=== PATIENT | female | born 1955 | race Caucasian/White ===

== ENCOUNTER 2017-11-10 11:15 | Outpatient (RCR) | payer OTHER, SELFPAY ==
--- NOTE | 2017-09-30 12:49 | PT.OIE ---
Current Diagnoses Pain in right shoulder (09/29/17) Unspecified injury of muscle, fascia and tendon of long head of biceps, right arm, subsequent encounter (09/29/17) Past Surgical History (Last Updated 09/30/17 @ 11:18 by Micheline Mtz, PT) History of carpal tunnel release (Acute) History of elbow surgery (Acute) History of partial knee replacement (Acute) Status post surgery (07/24/09) Provider Visit Care Team Role Provider Type Mir Emery MD Family Provider Physician Primary Care Provider Specialty: [facility] Address: [address] [place] [address], [id number] Email: [email or web address] Attending Provider Physician Specialty: Orthopedic Surgery Address: [address] [place] [address], [id number] Email: [email or web address] Physical Therapy Initial Evaluation PT-OP-A Visit Information Start: 09/29/17 12:35 Freq: Status: Active Protocol: Document 09/29/17 13:00 AMB (Rec: 09/29/17 16:23 AMB [email or web address]) Out-Patient Physical Therapy Visit Information Visit Information Visit Type Initial Evaluation Visit Note 12 visits authorized Visit Start Time 13:00 Visit Stop Time 13:45 Total Visit Minutes 45 Visit Number 1 Evaluation Information Evaluation Date 09/29/17 PT-OP-B Current Condition Start: 09/29/17 12:35 Freq: Status: Active Protocol: Document 09/29/17 13:00 AMB (Rec: 09/30/17 11:10 AMB [email or web address]) Current Condition History of Current Condition Onset Date 3 months ago Current Complaints Right shoulder and elbow pain, with intermittent numbness History of Current Condition The patient reports she tripped and fell into her nightstand. Since that time she has had shoulder and elbow pain that radiate into the hand. She does describe intermittent numbness in fingers 3-5. She also describes scapular pain. Pain is the worst lifting, carrying, sleeping on the shoulder. Prior Functional Status Baseline Function- ADL's Independent Baseline Function- Mobility Independent Baseline Function- Other Pt is retired, she lives independently. Current Functional Impairments (Reported) Functional Limitations- ADL's R arm is painful with sleeping , lifting groceries, reaching her back or hair for bathing. Personal Factors Other Personal Factors That May Effect Extensive previous surgical Therapy/Recovery history to the right arm. $40 copay which she really cannot afford. PT-OP-C Subjective Start: 09/29/17 12:35 Freq: Status: Active Protocol: Document 09/29/17 13:00 AMB (Rec: 09/30/17 11:31 AMB [email or web address]) OP-PT Subjective Patient Comments Patient Comments The patient states that the pain has been about the same over the past 3 months since she fell on her right arm. Patient Questionnaires Quick Dash- Upper Extremity Quick Dash UE Score 63 Quick Dash UE Impairment 60 to 79% Impaired (Score 60- 79) OP-PT Pain Assessment Pain Assessment Grid Paper Pain Assessment Grid Completed Yes Location R shoulder/elbow Pain Location Details 4 Scale Used Numeric (1 - 10) PT-OP-J Posture/Palpation/Skin Start: 09/29/17 12:35 Freq: Status: Active Protocol: Document 09/29/17 13:00 AMB (Rec: 09/30/17 12:46 AMB [email or web address]) Posture Evaluation Position Sitting Evaluation View Lateral Head/C-Spine Posture Forward Head L-Spine Posture Decreased Lordosis Shoulder Posture (L) Rounded (R) Rounded (L) Forward (R) Forward Arm Posture (L) Internally Rotated Palpation Assessment Location One Palpation Location Right shoulder Palpation Details Tenderness over long head of biceps insertion, tenderness over lateral glenohumeral joint but not as severe, tightness and tenderness at superior aspect of scapula. PT-OP-K Range of Motion Start: 09/29/17 12:35 Freq: Status: Active Protocol: Document 09/29/17 13:00 AMB (Rec: 09/30/17 12:43 AMB [email or web address]) Shoulder Goniometric Range of Motion Shoulder Measured in Degrees Left Active Testing Position Sitting Flexion 150 Abduction 125 Right Passive Testing Position Supine Flexion 130 Right Active Testing Position Sitting Flexion 110 Abduction 70 Shoulder ROM Limitations Comments External rotation at 0 degrees abduction 40 degrees onthe right, 70 degrees on the left. PT-OP-L Special Tests Start: 09/29/17 12:35 Freq: Status: Active Protocol: Document 09/29/17 13:00 AMB (Rec: 09/30/17 12:44 AMB [email or web address]) Special Tests Shoulder Special Tests Aguilera Harsha Impingement Test Results positive on the right, negative on the left Empty Can Test Results positive for increased pain on the right PT-OP-M Strength Start: 09/29/17 12:35 Freq: Status: Active Protocol: Document 09/29/17 13:00 AMB (Rec: 09/30/17 12:49 AMB [email or web address]) Shoulder Strength Shoulder Manual Muscle Testing Left Flexion 4+ Good+ Abduction (C5) 4+ Good+ External Rotation 5 Normal Internal Rotation 5 Normal Right Flexion 4 Good Abduction (C5) 3+ Fair+ External Rotation 4- Good- Internal Rotation 4 Good PT-OP-Q Treatments Start: 09/29/17 12:35 Freq: Status: Active Protocol: Document 09/29/17 13:00 AMB (Rec: 09/30/17 11:36 AMB [email or web address]) Therapeutic Exercises Supine Exercises 2 Supine Exercise Name scapular protraction Resistance 0 Reps/Minutes 5 1 Supine Exercise Name AAROM Comments flexion, abduction, ER with cane Sitting Exercises 1 Sitting Exercise Name biceps curl Resistance 2# Comments 3 way Standing Exercises 1 Standing Exercise Name t band ER Equipment Used level 2 latex free Reps/Minutes x5 PT-OP-T Assessment and Plan Start: 09/29/17 12:35 Freq: Status: Active Protocol: Document 09/29/17 13:00 AMB (Rec: 09/30/17 12:02 AMB [email or web address]) Physical Therapy Assessment Rehab Potential Rehabilitation Potential Good Evaluation Complexity Number of Personal Factors/Comorbidities 1-2 Number of Body Systems Impaired 4 or More Clinical Presentation at Evaluation Evolving Impairments Impairments Functional Activities Pain ROM Strength Other Concerns Barriers to Rehabilitation High copay- the patient will only be seen for 1-2 more appointments due to financial restrictions Goals 2 Impairment Strength Short Term Goal (STG) The patient will lift a 10# bag of groceries from the floor to waist height without an increase in shoulder or elbow pain. STG Duration 4 weeks Half-Way Goal (LTG) The patient will improve her shoulder strength so that she can wash her hair without her shoulder catching. LTG Duration 8 weeks 1 Impairment Range of motion Short Term Goal (STG) The patient will improve her active shoulder flexion to 140 degrees. STG Duration 4 weeks Half-Way Goal (LTG) The patient will improve her range of motion so that she can put dishes away in a high cabinet without increasing her pain. LTG Duration 8 weeks Assessment Summary Assessment The right hand dominant patient presents with right scapular, anterior shoulder, and elbow pain that radiates into the hand. Signs and symptoms point to bicipital tendinitis and glenohumeral impingement. Patient denies cervical symptoms, so possible ulnar nerve exacerbation would explain intermittent numbness, especially considering patient's prior surgical history in that arm. Improvement may be limited due to financial limitations and high copay, but did start the patient on a home exercise program at evaluation. Physical Therapy Plan Frequency and Duration Frequency of Treatment Every Other Week Duration of Treatment 8 weeks Plan of Care Start Date 09/29/17 Plan of Care End Date 11/24/17 Therapeutic Interventions Therapeutic Interventions Home Exercise Program Joint Mobilizations Manual Therapy Neuromuscular Re-education Self-Care/Home Management Therapeutic Activities Therapeutic Exercises Modalities Cold Pack/Ice Massage Electric Stimulation Hot Packs Please Sign and Return: I have reviewed this Plan of Care and certify that the skilled therapy services above are required to meet the patient???s needs. Physician Signature Date Printed Name and Credentials Clinical Instructor Signature Printed Name and Credentials
--- NOTE | 2017-10-21 06:38 | PT.OTN ---
Current Diagnoses Pain in right shoulder (10/20/17) Physical Therapy Treatment Note PT-OP-A Visit Information Start: 09/29/17 12:35 Freq: Status: Active Protocol: Document 10/20/17 13:45 AMB (Rec: 10/20/17 15:59 AMB [email or web address]) Out-Patient Physical Therapy Visit Information Visit Information Visit Type Progress Note Visit Note 12 visits authorized Visit Start Time 13:45 Visit Stop Time 14:30 Total Visit Minutes 45 Visit Number 1 Evaluation Information Evaluation Date 09/29/17 PT-OP-B Current Condition Start: 09/29/17 12:35 Freq: Status: Active Protocol: Document 09/29/17 13:00 AMB (Rec: 09/30/17 11:10 AMB [email or web address]) Current Condition History of Current Condition Onset Date 3 months ago Current Complaints Right shoulder and elbow pain, with intermittent numbness History of Current Condition The patient reports she tripped and fell into her nightstand. Since that time she has had shoulder and elbow pain that radiate into the hand. She does describe intermittent numbness in fingers 3-5. She also describes scapular pain. Pain is the worst lifting, carrying, sleeping on the shoulder. Prior Functional Status Baseline Function- ADL's Independent Baseline Function- Mobility Independent Baseline Function- Other Pt is retired, she lives independently. Current Functional Impairments (Reported) Functional Limitations- ADL's R arm is painful with sleeping , lifting groceries, reaching her back or hair for bathing. Personal Factors Other Personal Factors That May Effect Extensive previous surgical Therapy/Recovery history to the right arm. $40 copay which she really cannot afford. PT-OP-C Subjective Start: 09/29/17 12:35 Freq: Status: Active Protocol: Document 10/20/17 13:45 AMB (Rec: 10/20/17 15:59 AMB [email or web address]) OP-PT Subjective Patient Comments Patient Comments Patient states she is doing better, the scapular pain comes and goes, but overall the shoulder is feeling better in flexion, but still tight into internal rotation. PT-OP-J Posture/Palpation/Skin Start: 09/29/17 12:35 Freq: Status: Active Protocol: Document 09/29/17 13:00 AMB (Rec: 09/30/17 12:46 AMB [email or web address]) Posture Evaluation Position Sitting Evaluation View Lateral Head/C-Spine Posture Forward Head L-Spine Posture Decreased Lordosis Shoulder Posture (L) Rounded (R) Rounded (L) Forward (R) Forward Arm Posture (L) Internally Rotated Palpation Assessment Location One Palpation Location Right shoulder Palpation Details Tenderness over long head of biceps insertion, tenderness over lateral glenohumeral joint but not as severe, tightness and tenderness at superior aspect of scapula. PT-OP-K Range of Motion Start: 09/29/17 12:35 Freq: Status: Active Protocol: Document 09/29/17 13:00 AMB (Rec: 09/30/17 12:43 AMB [email or web address]) Shoulder Goniometric Range of Motion Shoulder Measured in Degrees Left Active Testing Position Sitting Flexion 150 Abduction 125 Right Passive Testing Position Supine Flexion 130 Right Active Testing Position Sitting Flexion 110 Abduction 70 Shoulder ROM Limitations Comments External rotation at 0 degrees abduction 40 degrees onthe right, 70 degrees on the left. PT-OP-L Special Tests Start: 09/29/17 12:35 Freq: Status: Active Protocol: Document 09/29/17 13:00 AMB (Rec: 09/30/17 12:44 AMB [email or web address]) Special Tests Shoulder Special Tests Aguilera Harsha Impingement Test Results positive on the right, negative on the left Empty Can Test Results positive for increased pain on the right PT-OP-M Strength Start: 09/29/17 12:35 Freq: Status: Active Protocol: Document 09/29/17 13:00 AMB (Rec: 09/30/17 12:49 AMB [email or web address]) Shoulder Strength Shoulder Manual Muscle Testing Left Flexion 4+ Good+ Abduction (C5) 4+ Good+ External Rotation 5 Normal Internal Rotation 5 Normal Right Flexion 4 Good Abduction (C5) 3+ Fair+ External Rotation 4- Good- Internal Rotation 4 Good PT-OP-Q Treatments Start: 09/29/17 12:35 Freq: Status: Active Protocol: Document 10/20/17 13:45 AMB (Rec: 10/20/17 16:07 AMB [email or web address]) Therapeutic Exercises Supine Exercises 2 Supine Exercise Name scapular protraction Resistance #2 t band Reps/Minutes 10 1 Supine Exercise Name AAROM Comments added IR with towel Standing Exercises 2 Standing Exercise Name t band IR 1 Standing Exercise Name t band ER Equipment Used level 2 latex free Reps/Minutes x10 Manual Therapy Treatment Soft Tissue Mobilization 1 Body Location supraspinatus Mobilization Type Cross-Friction Myofascial Release Strumming Comments tendon and body of muscle PT-OP-T Assessment and Plan Start: 09/29/17 12:35 Freq: Status: Active Protocol: Document 10/20/17 13:45 AMB (Rec: 10/21/17 06:37 AMB [email or web address]) Physical Therapy Assessment Assessment Summary Assessment The patient is progressing well, with stiffness into internal rotation, but significantly improved flexion and abduction. Physical Therapy Plan Next Visit Focus/Plan Next Note Type Treatment Note Next Visit Plan See pt again in 2-3 weeks (due to high copay) to progress HEP at that time. Please Sign and Return: I have reviewed this Plan of Care and certify that the skilled therapy services above are required to meet the patient?s needs. Physician Signature Date Printed Name and Credentials Clinical Instructor Signature Printed Name and Credentials
--- NOTE | 2017-11-10 11:15 | PT.OTN ---
Current Diagnoses Pain in right shoulder (11/10/17) Physical Therapy Treatment Note PT-OP-A Visit Information Start: 09/29/17 12:35 Freq: Status: Active Protocol: Document 11/10/17 11:15 AMB (Rec: 11/10/17 11:26 AMB [email or web address]) Out-Patient Physical Therapy Visit Information Visit Information Visit Type Discharge Summary Visit Start Time 11:15 Visit Stop Time 12:00 Total Visit Minutes 45 Visit Number 3 Evaluation Information Evaluation Date 09/29/17 PT-OP-B Current Condition Start: 09/29/17 12:35 Freq: Status: Active Protocol: Document 09/29/17 13:00 AMB (Rec: 09/30/17 11:10 AMB [email or web address]) Current Condition History of Current Condition Onset Date 3 months ago Current Complaints Right shoulder and elbow pain, with intermittent numbness History of Current Condition The patient reports she tripped and fell into her nightstand. Since that time she has had shoulder and elbow pain that radiate into the hand. She does describe intermittent numbness in fingers 3-5. She also describes scapular pain. Pain is the worst lifting, carrying, sleeping on the shoulder. Prior Functional Status Baseline Function- ADL's Independent Baseline Function- Mobility Independent Baseline Function- Other Pt is retired, she lives independently. Current Functional Impairments (Reported) Functional Limitations- ADL's R arm is painful with sleeping , lifting groceries, reaching her back or hair for bathing. Personal Factors Other Personal Factors That May Effect Extensive previous surgical Therapy/Recovery history to the right arm. $40 copay which she really cannot afford. PT-OP-C Subjective Start: 09/29/17 12:35 Freq: Status: Active Protocol: Document 11/10/17 11:15 AMB (Rec: 11/10/17 11:26 AMB [id number]) OP-PT Subjective Patient Comments Patient Comments Pt continues to note pain with sleeping on the shoulder. PT-OP-J Posture/Palpation/Skin Start: 09/29/17 12:35 Freq: Status: Active Protocol: Document 09/29/17 13:00 AMB (Rec: 09/30/17 12:46 AMB [email or web address]) Posture Evaluation Position Sitting Evaluation View Lateral Head/C-Spine Posture Forward Head L-Spine Posture Decreased Lordosis Shoulder Posture (L) Rounded (R) Rounded (L) Forward (R) Forward Arm Posture (L) Internally Rotated Palpation Assessment Location One Palpation Location Right shoulder Palpation Details Tenderness over long head of biceps insertion, tenderness over lateral glenohumeral joint but not as severe, tightness and tenderness at superior aspect of scapula. PT-OP-K Range of Motion Start: 09/29/17 12:35 Freq: Status: Active Protocol: Document 09/29/17 13:00 AMB (Rec: 09/30/17 12:43 AMB [email or web address]) Shoulder Goniometric Range of Motion Shoulder Measured in Degrees Left Active Testing Position Sitting Flexion 150 Abduction 125 Right Passive Testing Position Supine Flexion 130 Right Active Testing Position Sitting Flexion 110 Abduction 70 Shoulder ROM Limitations Comments External rotation at 0 degrees abduction 40 degrees onthe right, 70 degrees on the left. PT-OP-L Special Tests Start: 09/29/17 12:35 Freq: Status: Active Protocol: Document 09/29/17 13:00 AMB (Rec: 09/30/17 12:44 AMB [email or web address]) Special Tests Shoulder Special Tests Aguilera Harsha Impingement Test Results positive on the right, negative on the left Empty Can Test Results positive for increased pain on the right PT-OP-M Strength Start: 09/29/17 12:35 Freq: Status: Active Protocol: Document 09/29/17 13:00 AMB (Rec: 09/30/17 12:49 AMB [email or web address]) Shoulder Strength Shoulder Manual Muscle Testing Left Flexion 4+ Good+ Abduction (C5) 4+ Good+ External Rotation 5 Normal Internal Rotation 5 Normal Right Flexion 4 Good Abduction (C5) 3+ Fair+ External Rotation 4- Good- Internal Rotation 4 Good PT-OP-Q Treatments Start: 09/29/17 12:35 Freq: Status: Active Protocol: Document 11/10/17 11:15 AMB (Rec: 11/13/17 07:11 AMB [email or web address]) Therapeutic Exercises Supine Exercises 2 Supine Exercise Name scapular protraction Resistance #3 Reps/Minutes 10 Sidelying Exercises 1 Sidelying Exercise Name shoulder ER Resistance 2# Standing Exercises 4 Standing Exercise Name scaption Resistance 2# Reps/Minutes 10 3 Standing Exercise Name shoulder flexion Resistance 2# Reps/Minutes 10 1 Standing Exercise Name t band ER Equipment Used level 3 latex free Reps/Minutes 2x10 Manual Therapy Treatment Soft Tissue Mobilization 1 Body Location supraspinatus Mobilization Type Cross-Friction Myofascial Release Strumming Comments tendon and body of muscle PT-OP-T Assessment and Plan Start: 09/29/17 12:35 Freq: Status: Active Protocol: Document 11/10/17 11:15 AMB (Rec: 11/13/17 07:11 AMB [email or web address]) Physical Therapy Assessment Goals 2 Impairment Strength Short Term Goal (STG) The patient will lift a 10# bag of groceries from the floor to waist height without an increase in shoulder or elbow pain. MET STG Duration 4 weeks [employer] Goal (LTG) The patient will improve her shoulder strength so that she can wash her hair without her shoulder catching. MET LTG Duration 8 weeks 1 Impairment Range of motion Short Term Goal (STG) The patient will improve her active shoulder flexion to 140 degrees. MET STG Duration 4 weeks Residential Goal (LTG) The patient will improve her range of motion so that she can put dishes away in a high cabinet without increasing her pain. MET LTG Duration 8 weeks Assessment Summary Assessment The patient was seen for 3 visits. She has improved her range of motion significantly, as well as her ability to reach and lift without pain. She does continue to have pain when sleeping on the affected shoulder and moving the arm into end range external rotation. She was encouraged to continue with her HEP and given instruction in how to progress it appropriately. Given her progression so far and her high copay, she is now discharged and should continue her HEP independently . Physical Therapy Plan Discharge Physical Therapy Discharge Reasons Goals Met
--- NOTE | 2017-11-13 07:13 | PT.OPDS ---
Current Diagnoses Pain in right shoulder (11/10/17) Provider Visit Care Team Role Provider Type Mir Emery MD Family Provider Physician Primary Care Provider Specialty: Family Practice Address: [address] [place], [address] Email: [email or web address] Attending Provider Physician Specialty: Orthopedic Surgery Address: [address] [place] [address], [phone] Email: Visit Number Visit Number 3 Discharge Summary PT-OP-B Current Condition Start: 09/29/17 12:35 Freq: Status: Active Protocol: Document 09/29/17 13:00 AMB (Rec: 09/30/17 11:10 AMB [email or web address]) Current Condition History of Current Condition Onset Date 3 months ago Current Complaints Right shoulder and elbow pain, with intermittent numbness History of Current Condition The patient reports she tripped and fell into her nightstand. Since that time she has had shoulder and elbow pain that radiate into the hand. She does describe intermittent numbness in fingers 3-5. She also describes scapular pain. Pain is the worst lifting, carrying, sleeping on the shoulder. Prior Functional Status Baseline Function- ADL's Independent Baseline Function- Mobility Independent Baseline Function- Other Pt is retired, she lives independently. Current Functional Impairments (Reported) Functional Limitations- ADL's R arm is painful with sleeping , lifting groceries, reaching her back or hair for bathing. Personal Factors Other Personal Factors That May Effect Extensive previous surgical Therapy/Recovery history to the right arm. $40 copay which she really cannot afford. PT-OP-C Subjective Start: 09/29/17 12:35 Freq: Status: Active Protocol: Document 11/10/17 11:15 AMB (Rec: 11/10/17 11:26 AMB [email or web address]) OP-PT Subjective Patient Comments Patient Comments Pt continues to note pain with sleeping on the shoulder. PT-OP-J Posture/Palpation/Skin Start: 09/29/17 12:35 Freq: Status: Active Protocol: Document 09/29/17 13:00 AMB (Rec: 09/30/17 12:46 AMB [email or web address]) Posture Evaluation Position Sitting Evaluation View Lateral Head/C-Spine Posture Forward Head L-Spine Posture Decreased Lordosis Shoulder Posture (L) Rounded (R) Rounded (L) Forward (R) Forward Arm Posture (L) Internally Rotated Palpation Assessment Location One Palpation Location Right shoulder Palpation Details Tenderness over long head of biceps insertion, tenderness over lateral glenohumeral joint but not as severe, tightness and tenderness at superior aspect of scapula. PT-OP-K Range of Motion Start: 09/29/17 12:35 Freq: Status: Active Protocol: Document 09/29/17 13:00 AMB (Rec: 09/30/17 12:43 AMB [email or web address]) Shoulder Goniometric Range of Motion Shoulder Measured in Degrees Left Active Testing Position Sitting Flexion 150 Abduction 125 Right Passive Testing Position Supine Flexion 130 Right Active Testing Position Sitting Flexion 110 Abduction 70 Shoulder ROM Limitations Comments External rotation at 0 degrees abduction 40 degrees onthe right, 70 degrees on the left. PT-OP-L Special Tests Start: 09/29/17 12:35 Freq: Status: Active Protocol: Document 09/29/17 13:00 AMB (Rec: 09/30/17 12:44 AMB [email or web address]) Special Tests Shoulder Special Tests Aguilera Harsha Impingement Test Results positive on the right, negative on the left Empty Can Test Results positive for increased pain on the right PT-OP-M Strength Start: 09/29/17 12:35 Freq: Status: Active Protocol: Document 09/29/17 13:00 AMB (Rec: 09/30/17 12:49 AMB [email or web address]) Shoulder Strength Shoulder Manual Muscle Testing Left Flexion 4+ Good+ Abduction (C5) 4+ Good+ External Rotation 5 Normal Internal Rotation 5 Normal Right Flexion 4 Good Abduction (C5) 3+ Fair+ External Rotation 4- Good- Internal Rotation 4 Good PT-OP-T Assessment and Plan Start: 09/29/17 12:35 Freq: Status: Active Protocol: Document 11/10/17 11:15 AMB (Rec: 11/13/17 07:11 AMB [email or web address]) Physical Therapy Assessment Goals 2 Impairment Strength Short Term Goal (STG) The patient will lift a 10# bag of groceries from the floor to waist height without an increase in shoulder or elbow pain. MET STG Duration 4 weeks Assisted Goal (LTG) The patient will improve her shoulder strength so that she can wash her hair without her shoulder catching. MET LTG Duration 8 weeks 1 Impairment Range of motion Short Term Goal (STG) The patient will improve her active shoulder flexion to 140 degrees. MET STG Duration 4 weeks Assisted Goal (LTG) The patient will improve her range of motion so that she can put dishes away in a high cabinet without increasing her pain. MET LTG Duration 8 weeks Assessment Summary Assessment The patient was seen for 3 visits. She has improved her range of motion significantly, as well as her ability to reach and lift without pain. She does continue to have pain when sleeping on the affected shoulder and moving the arm into end range external rotation. She was encouraged to continue with her HEP and given instruction in how to progress it appropriately. Given her progression so far and her high copay, she is now discharged and should continue her HEP independently . Physical Therapy Plan Discharge Physical Therapy Discharge Reasons Goals Met
== END 2017-12-14 10:48 ==
LOC: PHYS 11:15
PROVIDERS: Family Provider Family Medicine; PCP Family Medicine; Visit Provider Orthopaedic Surgery
DX: M25.511 Pain in right shoulder (principal)
CPT/HCPCS: 97110; 97140; 97162

== ENCOUNTER → 2018-03-08 09:55 | Outpatient (CLI) | payer OTHER, SELFPAY ==
--- NOTE | 2018-03-08 | DI.MG.S_ITS ---
UNILATERAL LEFT DIGITAL DIAGNOSTIC MAMMOGRAM 3D/2D SHORT-TERM FOLLOW-UP: 03/08/2018 CLINICAL: Additional evaluation requested from prior study. Short-term follow-up left breast. Comparison is made to exams dated: 08/26/2017 mammogram, 08/07/2017 mammogram, and 07/10/2016 mammogram - [facility]. The tissue of left breast is extremely dense, which lowers the sensitivity of mammography. There are stable calcifications in the left breast at 1 o'clock middle depth. This correlates with the prior exam. No other significant masses or calcifications are seen in the breast. IMPRESSION: PROBABLY BENIGN The stable calcifications in the left breast are probably benign. A follow-up mammogram in 6 months is recommended to demonstrate stability. This exam was interpreted at Station ID: [id number]. NOTE: For mammograms, a report in lay terms will be sent to the patient. Approximately 15% of breast malignancies will not be visualized mammographically. In the management of a palpable breast mass, a negative mammogram must not discourage biopsy of a clinically suspicious lesion. Electronically Signed By: Kelly Hernandez M.D. lk/:03/08/2018 10:52:26 letter sent: Followup Recommended ACR BI-RADS Category 3: Probably benign 3343F
== END ==
PROVIDERS: PCP Family Medicine; Visit Provider Family Medicine
DX: R92.1 Mammographic calcification found on diagnostic imaging of breast (principal)
CPT/HCPCS: 77065; G0279

== ENCOUNTER → 2018-09-07 12:35 | Outpatient (CLI) | payer OTHER, SELFPAY ==
--- NOTE | 2018-09-07 | DI.MG.S_ITS ---
BILATERAL DIGITAL DIAGNOSTIC MAMMOGRAM 3D/2D: 09/07/2018 CLINICAL: Patient returns for a 6 month follow up of the left breast. Due for bilateral imaging. Comparison is made to exams dated: 03/08/2018 mammogram, 08/26/2017 mammogram, 08/07/2017 mammogram, and 07/10/2016 mammogram - [facility]. The tissue of both breasts is heterogeneously dense, which lowers the sensitivity of mammography. There are stable benign linear punctate calcifications in the left breast at 2 o'clock posterior depth. This correlates with the prior exam. No other significant masses, calcifications, or other findings are seen in either breast. IMPRESSION: There is no mammographic evidence of malignancy. Stable left breast calcifications. A 1 year screening mammogram is recommended. Findings and recommendations were conveyed to the patient. This exam was interpreted at Station ID: [id number]. NOTE: For mammograms, a report in lay terms will be sent to the patient. Approximately 15% of breast malignancies will not be visualized mammographically. In the management of a palpable breast mass, a negative mammogram must not discourage biopsy of a clinically suspicious lesion. Electronically Signed By: Mary lozano/:09/07/2018 13:54:55 letter sent: Normal Exam ACR BI-RADS Category 2: Benign Finding(s) 3342F
== END ==
PROVIDERS: PCP Family Medicine; Visit Provider Family Medicine
DX: R92.1 Mammographic calcification found on diagnostic imaging of breast (principal)
CPT/HCPCS: 77066; G0279

== ENCOUNTER → 2019-01-13 09:42 | Outpatient (CLI) | payer OTHER, SELFPAY ==
[2019-01-13 11:13] LABS: Add Manual Diff / Slide Review NO; Basophils Absolute Auto 0 /uL (0-100); Basophils Percent Auto 0.7 % (0-2); Eosinophils Absolute Auto 100 /uL (0-450); Eosinophils Percent Auto 1.6 % (2-4); Hematocrit 39.5 % (36-46); Hemoglobin 13.6 g/dL (12.0-16.0); Lymphocytes Absolute Auto 1300 /uL (1100-4500); Lymphocytes Percent Auto 20.4 % (25-40); Mean Corpuscular HGB Conc 34.4 % (30-36); Mean Corpuscular Hemoglobin 31.7 PG (26-34); Mean Corpuscular Volume 92.1 fL (80-100); Monocytes Absolute Auto 500 /uL (0-900); Monocytes Percent Auto 7.8 % (3-14); Neutrophils Absolute Auto 4300 /uL (1500-7000); Neutrophils Percent Auto 69.5 % (50-75); Platelet Count 242 X10^3/uL (150-400); Red Blood Cell Count 4.29 X10^6/uL (4.0-5.2); Red Cell Distribution Width 12.7 % (11.6-14.8); White Blood Cell Count 6.2 X10^3/uL (4.5-11.0)
[2019-01-13 11:17] LABS: Hemoglobin A1C% w Est Avg Glu 5.3 % (4.0-6.0)
[2019-01-13 11:36] LABS: Alanine Aminotransferase 23 IU/L (9-52); Albumin 4.1 g/dL (3.5-5.0); Albumin Globulin Ratio 1.6 (1.0-2.8); Alkaline Phosphatase 101 U/L (38-126); Aspartate Aminotransferase 22 IU/L (14-36); Bilirubin Total 0.7 mg/dL (0.2-1.3); Bilirubin Unconjugated 0.4 mg/dL (0.0-1.1); Blood Urea Nitrogen 14 mg/dL (7-17); Calcium 9.8 mg/dL (8.4-10.2); Carbon Dioxide 27 mmol/L (22-32); Chloride 103 mmol/L (98-107); Cholesterol 143 mg/dL (140-199); Estimated Glomerular Filt Rate > 60.0 mL/min (>60); Globulin 2.6 g/dL (1.7-4.1); Glucose 101 mg/dL (80-110); HDL Cholesterol 57 mg/dL (40-60); HEMOLYSIS < 15 (0-50); LDL Cholesterol Calculated 66 mg/dL (<100); Potassium 4.1 mmol/L (3.4-5.1); Sodium 141 mmol/L (137-145); Total Protein 6.7 g/dL (6.3-8.2); Triglycerides 99 mg/dL (35-150)
[2019-01-13 11:53] LABS: Free T4, Direct Thyroxine 0.98 ng/dL (0.78-2.19)
[2019-01-13 12:07] LABS: Thyroid Stimulating Hormone 0.78 uIU/mL (0.47-4.68)
== END ==
PROVIDERS: Visit Provider Nurse Practitioner Psychiatric/Mental Health
DX: F32.9 Major depressive disorder, single episode, unspecified (principal); F41.9 Anxiety disorder, unspecified; Z51.81 Encounter for therapeutic drug level monitoring
CPT/HCPCS: 80053; 80061; 80076; 83036; 84439; 84443; 85025

== ENCOUNTER → 2019-12-02 14:37 | Outpatient (CLI) | payer OTHER, SELFPAY | PROVIDERS: PCP Student in an Organized Health Care Education/Training Program; Referring Provider Student in an Organized Health Care Education/Training Program; Visit Provider Student in an Organized Health Care Education/Training Program | DX: M85.852 Other specified disorders of bone density and structure, left thigh (principal); Z78.0 Asymptomatic menopausal state; K92.9 Disease of digestive system, unspecified; Z82.62 Family history of osteoporosis | CPT/HCPCS: 77080 ==

== ENCOUNTER → 2019-12-20 09:57 | Outpatient (CLI) | payer OTHER, SELFPAY ==
--- NOTE | 2019-12-20 | DI.MG.S_ITS ---
BILATERAL DIGITAL SCREENING MAMMOGRAM 3D/2D WITH CAD: 12/20/2019 CLINICAL: Routine screening. Comparison is made to exams dated: 09/07/2018 mammogram, 08/07/2017 mammogram, and 07/10/2016 mammogram - [facility]. The tissue of both breasts is extremely dense, which lowers the sensitivity of mammography. Current study was also evaluated with a Computer Aided Detection (CAD) system. No significant masses, calcifications, or other findings are seen in either breast. There has been no significant interval change. IMPRESSION: NEGATIVE There is no mammographic evidence of malignancy. A 1 year screening mammogram is recommended. This exam was interpreted at Station ID: [id number]. NOTE: For mammograms, a report in lay terms will be sent to the patient. Approximately 15% of breast malignancies will not be visualized mammographically. In the management of a palpable breast mass, a negative mammogram must not discourage biopsy of a clinically suspicious lesion. Electronically Signed By: Fady Butler M.D., jr/matt:12/20/2019 11:18:01 letter sent: Normal Exam ACR BI-RADS Category 1: Negative 3341F
== END ==
PROVIDERS: PCP Student in an Organized Health Care Education/Training Program; Referring Provider Student in an Organized Health Care Education/Training Program; Visit Provider Student in an Organized Health Care Education/Training Program
DX: Z12.31 Encounter for screening mammogram for malignant neoplasm of breast (principal)
CPT/HCPCS: 77063; 77067

== ENCOUNTER 2020-01-03 15:15 | Outpatient (RCR) | payer OTHER, SELFPAY ==
--- NOTE | 2019-12-12 15:06 | PT.OIE ---
Current Diagnoses Other specified personal risk factors, not elsewhere classified (12/12/19) Past Medical History (Last Reviewed 06/02/19 @ 09:52 by Oli Hernandez MD) Depression (Acute) Past Surgical History (Last Reviewed 06/02/19 @ 09:52 by Oli Hernandez MD) History of carpal tunnel release (Acute) History of elbow surgery (Acute) History of partial knee replacement (Acute) Status post surgery (07/24/09) Visit Care Team Role Provider Type Verenice Manning MD Attending Provider Physician Primary Care Provider Referring Provider Specialty: [facility] Practice Address: [address] [place] [address], [facility] Email: [email or web address] Initial Evaluation PT-OP-A Visit Information Start: 12/12/19 12:32 Freq: Status: Active Protocol: Document 12/12/19 12:33 HH (Rec: 12/12/19 12:57 HH [email or web address]) Out-Patient Physical Therapy Visit Information Visit Information Visit Start Time 10:30 Visit Stop Time 11:01 Total Visit Minutes 31 Visit Number /15 Number of POLICE PILOT Visits 0 Evaluation Information Evaluation Date 12/12/19 Precautions Precautions high fall risks PT-OP-B Current Condition Start: 12/12/19 12:32 Freq: Status: Active Protocol: Document 12/12/19 12:33 HH (Rec: 12/12/19 12:57 HH [email or web address]) Current Condition History of Current Condition Onset Date years ago Current Complaints Decline in balance, risk of falling, difficulty in walking History of Current Condition Pt is a 64yo female here for decline in balance, risk of falling and difficulty in walking. Pt presents with flat affect and somewhat poor attention. Pt noticed her balance has been getting worse since a few years ago and she had 6-7 falls within the past year, especially 2 times within the past 2 weeks. She described her legs feel like out of control and wobbly who shows involuntary movement in seated/ laying position. Pt stated she can control them sometimes depends on the day. She also c/o dizziness/ room spinning sensation sometimes especially bed mobility. Pt saw Dr. Manning but she said she did not address her presentation of uncontrolled leg movement to her. Future Testing and Treatments Planned Pt will see Dr. Manning again on 12/13 for f/u. Treatment Goals Patient/Caregiver Goals To improve her balance to reduce her fall risks Personal Factors Other Personal Factors That May Effect psychological disorder Therapy/Recovery depression dizziness PT-OP-C Subjective Start: 12/12/19 12:32 Freq: Status: Active Protocol: Document 12/12/19 12:33 HH (Rec: 12/12/19 12:57 [email or web address]) OP-PT Subjective Patient Comments Patient Comments 'My legs are hard to control sometimes and i dont know why. Patient Questionnaires ABC- Activity Specific Balance Confidence Scale ABC Score 71.25 ABC Functional Impairment 20 to <40% Impaired (Score 61- 80) Dizziness Handicap Inventory DHI Score 64 DHI Functional Impairment 60 to 79% Impaired (Score 60- 79) PT-OP-G Mobility & Gait Start: 12/12/19 12:32 Freq: Status: Active Protocol: Document 12/12/19 12:33 HH (Rec: 12/12/19 12:57 [email or web address]) OP Gait Assessment Gait Deviations General Gait Pattern Antalgic Factors Limiting Gait Function Factors Limiting Gait Function Poor Balance Comments Gait Comments pt presents an ataxic gait with uneven step length and width length. Pt overall amb slowly with difficulty amb with a straigth line. Occasional lateral weight shift noted. PT-OP-H Neuro Start: 12/12/19 12:32 Freq: Status: Active Protocol: Document 12/12/19 12:33 HH (Rec: 12/12/19 12:57 [email or web address]) Coordination Evaluation Upper Extremity Tests Right Finger to Nose Test Minimal Impairment Finger to Therapist's Finger Test Minimal Impairment Finger to Finger Test Minimal Impairment Finger Opposition Test Minimal Impairment Pronation/Supination Test Minimal Impairment Left Finger to Nose Test Minimal Impairment Finger to Therapist's Finger Test Minimal Impairment Finger to Finger Test Minimal Impairment Finger Opposition Test Minimal Impairment Pronation/Supination Test Minimal Impairment Lower Extremity Tests Right Alternate Heel to Knee; Heel to Toe Test Moderate Impairment Heel on Lee Test Moderate Impairment Left Alternate Heel to Knee; Heel to Toe Test Moderate Impairment Heel on Lee Test Moderate Impairment Muscle Tone Tone Assessment Right Lower Extremity Manifestations of Tone Fluctuation,Athetoid Movement Muscle Tone Comments pt presents fluctuated tone at lower legs , along with consistent chorea for B LE in seated and supine positions. pt has difficulty performing lee to knee and ankle circles tests. Right Upper Extremity Flexor Tone Description Normal Extensor Tone Description Normal Left Upper Extremity Flexor Tone Description Normal Extensor Tone Description Normal PT-OP-K Range of Motion Start: 12/12/19 12:32 Freq: Status: Active Protocol: Document 12/12/19 12:33 HH (Rec: 12/12/19 12:57 [email or web address]) Hip Goniometric Range of Motion Hip Right Active Hip ROM WFL Yes Left Active Hip ROM WFL Yes Knee Goniometric Range of Motion Knee Right Knee ROM WFL Yes Left Knee ROM WFL Yes PT-OP-M Strength Start: 12/12/19 12:32 Freq: Status: Active Protocol: Document 12/12/19 12:33 HH (Rec: 12/12/19 12:57 [email or web address]) Hip Strength Hip Manual Muscle Testing Right Reason Not Measured Muscle Tone Comments Has difficulty isolating single joint movement Left Reason Not Measured Muscle Tone Comments Has difficulty isolating single joint movement PT-OP-O Vestibular Start: 12/12/19 12:32 Freq: Status: Active Protocol: Document 12/12/19 12:33 HH (Rec: 12/12/19 14:57 [email or web address]) Vestibular Assessment Visual Testing Smooth Pursuits Horizontal intact Smooth Pursuits Vertical intact Saccades Horizontal intact Saccades Vertical intact Vestibulo-Ocular Reflex (VOR1) Positive PT-OP-T Assessment and Plan Start: 12/12/19 12:32 Freq: Status: Active Protocol: Document 12/12/19 12:33 HH (Rec: 12/12/19 12:57 [email or web address]) Physical Therapy Assessment Assessment Summary Assessment This is a high complexity evaluation for this 64yo female here for decline in balance and risk of falling since a few years ago. Upon assessment, pt presents significant involuntary - chorea like movements primarily on bilateral lower extremities in seated and supine positions. Her overall fine motor control and coordination are impaired (LEs worse than UEs). Pt also presents nystagmus with VOR screening. She also amb with an ataxic with inconsistent step and length and width. However, pt does not have strength and ROM loss. In my professional opinion, I suspect pt has possible upper motor neuron impairment such as Zachariah's Disease. Recommended pt to consult with PCP again, along with neurologist consult. POC will not establish until further assessment is done. Physical Therapy Plan Frequency and Duration Duration of Treatment pending Other Referrals/Consults Referrals/Consults Recommended Recommended pt to consult with Dr. Manning and neurologist to rule out possible neurological disease.
--- NOTE | 2019-12-26 16:59 | PT.OPPOC ---
Physical, Occupational & Speech Therapy At [facility] Current Diagnoses Other specified personal risk factors, not elsewhere classified (12/26/19) Visit Care Team Role Provider Type Verenice Manning MD Attending Provider Physician Primary Care Provider Referring Provider Specialty: Family Practice Address: [address] [place] [address] [place], [address] Email: [email or web address] Plan Of Care PT-OP-T Assessment and Plan Start: 12/12/19 12:32 Freq: Status: Active Protocol: Document 12/26/19 16:35 HH (Rec: 12/26/19 16:59 HH [email or web address]) Physical Therapy Assessment Other Concerns Barriers to Rehabilitation per EMR, Patient has a long- time history of depression and anxiety. She had an episode of severe depression with psychotic features and was psychiatrically hospitalized in 2012. She had a 2nd acute episode in July 2018 which was managed on an outpatient basis. Patient has lived in [place] her entire life. She has good social support ( although significantly reduced by COVID-19 recommendations). She is especially close to 1 [place] who [place] [facility]. CHIEF COMPLAINT: Acute episode of depression with psychosis in July 2018. Worsening depression and anxiety associated with increased social isolation due to COVID- 19 restrictions. Her akathisia/TD in feet fluctuates (more prominent when feeling stressed), tearfulness, social isolation. Goals HEP Impairment pt does not have any HEP Short Term Goal (STG) Pt will complete HEP safely and independently on a daily basis. STG Duration 8 weeks DGI Impairment pt scores 8/24 on DGI Short Term Goal (STG) pt will score 10 or above on DGI STG Duration 4 weeks Long-Term Goal (LTG) pt will score 15 or above on DGI to improve her gait stability to reduce fall risks . LTG Duration 8 weeks ROSARIO Impairment pt scores 39/56 for ROSARIO Short Term Goal (STG) Pt will score 44 or above on ROSARIO STG Duration 4 weeks Unit Assistant Goal (LTG) Pt will score 46 or above on ROSARIO to improve her overall mobiltiy and balance LTG Duration 8 weeks Assessment Summary Assessment Dr. Webb notified this PT to proceed PT with patient since her akathisia is closely followed by her and SARA Farmer. Cont assessment from last visit today., pt scores 36/56 for ROSARIO and 8/24 for DGI which are significantly lower than peers . Pt tends to LOB with head turns, SLS type of balancing activities and needed CGa/ min A. Pt also has poor endurance and required frequent rest breaks. Although pt has various external factors that affect her baalnce such as psychiatric medication and psychiatric illness, pt will still benefit from skilled therapy to improve her overall balance and LE strength to reduce her fall risk. However, d/t high copay for her insurance, recommended pt to be compliant on her HEP and POC = once every 2 weeks for 2 months. Physical Therapy Plan Frequency and Duration Frequency of Treatment Every Other Week Duration of Treatment 8 weeks Plan of Care Start Date 12/26/19 Plan of Care End Date 02/24/20 Next Visit Focus/Plan Next Note Type Treatment Note Next Visit Plan review HEP stepper/ bike balance board leg press balance activities with EO/ EC / head turns heel toe, marching in place Plan of Care Dates Plan of Care Start Date 12/26/19 Plan of Care End Date 02/24/20 Electronically Signed by: Faby Pineda PT 12/26/19 [id number] Please Sign and Return: I have reviewed this Plan of Care and certify that the skilled therapy services above are required to meet the patient?s needs. Physician Signature Date Printed Name and Credentials Clinical Instructor Signature Printed Name and Credentials
--- NOTE | 2019-12-26 16:59 | PT.OTN ---
Current Diagnoses Other specified personal risk factors, not elsewhere classified (12/26/19) Physical Therapy Treatment Note PT-OP-A Visit Information Start: 12/12/19 12:32 Freq: Status: Active Protocol: Document 12/26/19 16:35 HH (Rec: 12/26/19 16:59 HH [email or web address]) Out-Patient Physical Therapy Visit Information Visit Information Visit Type Treatment Note Visit Note Received Dr. Manning's note regarding pt's involuntary chorea like movements. Pt is under the care of SARA Farmer for management of her psychiatric illness. 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 Prince. Please proceed with physical therapy as requested. Visit Start Time 13:46 Visit Stop Time 14:30 Total Visit Minutes 44 Visit Number 2/15 Number of TEA BAG MACHINE TENDER Visits 0 PT-OP-B Current Condition Start: 12/12/19 12:32 Freq: Status: Active Protocol: Document 12/12/19 12:33 HH (Rec: 12/12/19 12:57 HH [email or web address]) Current Condition History of Current Condition Onset Date years ago Current Complaints Decline in balance, risk of falling, difficulty in walking History of Current Condition Pt is a 64yo female here for decline in balance, risk of falling and difficulty in walking. Pt presents with flat affect and somewhat poor attention. Pt noticed her balance has been getting worse since a few years ago and she had 6-7 falls within the past year, especially 2 times withn the past 2 weeks. She described her legs feel like out of control and wobbly who shows involuntary movement in seated/ laying position. Pt stated she can control them sometimes depends on the day. She also c/o dizziness/ room spinning sensation sometimes especially bed mobility. Pt saw Dr. Manning but she said she did not address her presentation of uncontrolled leg movement to her. Future Testing and Treatments Planned Pt will see Dr. Manning again on 12/13 for f/u. Treatment Goals Patient/Caregiver Goals To improve her balance to reduce her fall risks Personal Factors Other Personal Factors That May Effect psychological disorder Therapy/Recovery depression dizziness PT-OP-C Subjective Start: 12/12/19 12:32 Freq: Status: Active Protocol: Document 12/12/19 12:33 HH (Rec: 12/12/19 12:57 HH [email or web address]) OP-PT Subjective Patient Comments Patient Comments 'My legs are hard to control sometimes and i dont know why. Patient Questionnaires ABC- Activity Specific Balance Confidence Scale ABC Score 71.25 ABC Functional Impairment 20 to <40% Impaired (Score 61- 80) Dizziness Handicap Inventory DHI Score 64 DHI Functional Impairment 60 to 79% Impaired (Score 60- 79) PT-OP-D Balance Start: 12/12/19 12:32 Freq: Status: Active Protocol: Document 12/26/19 16:35 HH (Rec: 12/26/19 16:59 [email or web address]) Balance Tests Kidd Balance Test Kidd Balance Test Score 39 Kidd Impairment Rating 20 to 39% Impaired (Score 34- 44) Kidd Balance Assessment Evaluation Sitting to Standing Ability Independent w/out Hands Unsupported Stance Supervision- 2 minutes Sitting Unsupported, Feet on Floor Safely- 2 minutes Standing to Sitting Ability Assist, Control w/Hands Transfer Ability Safely, Minimal Hand Use Unsupported Stance- Eyes Closed Supervision, 10 seconds Unsupported Stance- Eyes Open Independent, 1 minute Reaching Forward Standing Safely, 5 inches Pick- Up Object From Floor Supervision Look Behind Shoulder - Standing Shifts Weight Well Turning 360 Degrees Turns slowly, but safely Unsupported Stance, Alternating Feet on 2 Steps w/Minimum Assist Stair Unsupported Tandem Stance Balance Lost- Step/Stand Unilateral Leg Stance Lifts Leg/Unable to Hold Total Score Kidd Total Score (out of 56 points) 39 Kidd Impairment Rating 20 to 39% Impaired (Score 34- 44) PT-OP-E Functional Tests Start: 12/12/19 12:32 Freq: Status: Active Protocol: Document 12/26/19 16:35 HH (Rec: 12/26/19 16:59 [email or web address]) Functional Tests Dynamic Gait Index (DGI) Score 8 DGI Impairment Rating 60 to <80% Impaired (Score 5-9 ) PT-OP-G Mobility & Gait Start: 12/12/19 12:32 Freq: Status: Active Protocol: Document 12/12/19 12:33 HH (Rec: 12/12/19 12:57 [email or web address]) OP Gait Assessment Gait Deviations General Gait Pattern Antalgic Factors Limiting Gait Function Factors Limiting Gait Function Poor Balance Comments Gait Comments pt presents an ataxic gait with uneven step length and width length. Pt overall amb slowly with difficulty amb with a straigth line. Occasional lateral weight shift noted. PT-OP-H Neuro Start: 12/12/19 12:32 Freq: Status: Active Protocol: Document 12/12/19 12:33 HH (Rec: 12/12/19 12:57 [email or web address]) Coordination Evaluation Upper Extremity Tests Right Finger to Nose Test Minimal Impairment Finger to Therapist's Finger Test Minimal Impairment Finger to Finger Test Minimal Impairment Finger Opposition Test Minimal Impairment Pronation/Supination Test Minimal Impairment Left Finger to Nose Test Minimal Impairment Finger to Therapist's Finger Test Minimal Impairment Finger to Finger Test Minimal Impairment Finger Opposition Test Minimal Impairment Pronation/Supination Test Minimal Impairment Lower Extremity Tests Right Alternate Heel to Knee; Heel to Toe Test Moderate Impairment Heel on Lee Test Moderate Impairment Left Alternate Heel to Knee; Heel to Toe Test Moderate Impairment Heel on Lee Test Moderate Impairment Muscle Tone Tone Assessment Right Lower Extremity Manifestations of Tone Fluctuation,Athetoid Movement Muscle Tone Comments pt presents fluctuated tone at lower legs , along with consistent chorea for B LE in seated and supine positions. pt has difficulty performing lee to knee and ankle circles tests. Right Upper Extremity Flexor Tone Description Normal Extensor Tone Description Normal Left Upper Extremity Flexor Tone Description Normal Extensor Tone Description Normal PT-OP-K Range of Motion Start: 12/12/19 12:32 Freq: Status: Active Protocol: Document 12/12/19 12:33 HH (Rec: 12/12/19 12:57 [email or web address]) Hip Goniometric Range of Motion Hip Right Active Hip ROM WFL Yes Left Active Hip ROM WFL Yes Knee Goniometric Range of Motion Knee Right Knee ROM WFL Yes Left Knee ROM WFL Yes PT-OP-M Strength Start: 12/12/19 12:32 Freq: Status: Active Protocol: Document 12/12/19 12:33 HH (Rec: 12/12/19 12:57 [email or web address]) Hip Strength Hip Manual Muscle Testing Right Reason Not Measured Muscle Tone Comments Has difficulty isolating single joint movement Left Reason Not Measured Muscle Tone Comments Has difficulty isolating single joint movement PT-OP-O Vestibular Start: 12/12/19 12:32 Freq: Status: Active Protocol: Document 12/12/19 12:33 HH (Rec: 12/12/19 14:57 [email or web address]) Vestibular Assessment Visual Testing Smooth Pursuits Horizontal intact Smooth Pursuits Vertical intact Saccades Horizontal intact Saccades Vertical intact Vestibulo-Ocular Reflex (VOR1) Positive PT-OP-Q Treatments Start: 12/12/19 12:32 Freq: Status: Active Protocol: Document 12/26/19 16:35 HH (Rec: 12/26/19 16:59 [email or web address]) Cardio Equipment Recumbent Stepper (Sci-Fit) Duration (Minutes) 6 Resistance 1 Therapeutic Exercises Standing Exercises heel toe Standing Exercise Name UE on grab bar Side bilateral Comments for HEP semi tandem mini squat Side bilateral Reps/Minutes 8 x2 Comments for HEP side stepping Standing Exercise Name UEs on grab bar Side bilateral Comments for HEP, pt LOB if without support marching in place Standing Exercise Name next to counter Side bilateral Comments for HEP, pt LOB if without support Neuro Re-Education Treatment Balance Activities DGI Details assessment KIDD Details assessment PT-OP-T Assessment and Plan Start: 12/12/19 12:32 Freq: Status: Active Protocol: Document 12/26/19 16:35 HH (Rec: 12/26/19 16:59 [email or web address]) Physical Therapy Assessment Other Concerns Barriers to Rehabilitation per EMR, Patient has a long- time history of depression and anxiety. She had an episode of severe depression with psychotic features and was psychiatrically hospitalized in 2012. She had a 2nd acute episode in July 2018 which was managed on an outpatient basis. Patient has lived in [place] her entire life. She has good social support ( although significantly reduced by COVID-19 recommendations). She is especially close to 1 brother who [place] [facility]. CHIEF COMPLAINT: Acute episode of depression with psychosis in July 2018. Worsening depression and anxiety associated with increased social isolation due to COVID- 19 restrictions. Her akathisia/TD in feet fluctuates (more prominent when feeling stressed), tearfulness, social isolation. Goals HEP Impairment pt does not have any HEP Short Term Goal (STG) Pt will complete HEP safely and independently on a daily basis. STG Duration 8 weeks DGI Impairment pt scores 8/24 on DGI Short Term Goal (STG) pt will score 10 or above on DGI STG Duration 4 weeks Jail Goal (LTG) pt will score 15 or above on DGI to improve her gait stability to reduce fall risks . LTG Duration 8 weeks KIDD Impairment pt scores 39/56 for KIDD Short Term Goal (STG) Pt will score 44 or above on KIDD STG Duration 4 weeks Inhalation Therapy Aide Goal (LTG) Pt will score 46 or above on KIDD to improve her overall mobiltiy and balance LTG Duration 8 weeks Assessment Summary Assessment Dr. Webb notified this PT to proceed PT with patient since her akathisia is closely followed by her and SARA Farmer. Cont assessment from last visit today., pt scores 36/56 for KIDD and 8/24 for DGI which are significantly lower than peers . Pt tends to LOB with head turns, SLS type of balancing activities and needed CGa/ min A. Pt also has poor endurance and required frequent rest breaks. Although pt has various external factors that affect her baalnce such as psychiatric medication and psychiatric illness, pt will still benefit from skilled therapy to improve her overall balance and LE strength to reduce her fall risk. However, d/t high copay for her insurance, recommended pt to be compliant on her HEP and POC = once every 2 weeks for 2 months. Physical Therapy Plan Frequency and Duration Frequency of Treatment Every Other Week Duration of Treatment 8 weeks Plan of Care Start Date 12/26/19 Plan of Care End Date 02/24/20 Next Visit Focus/Plan Next Note Type Treatment Note Next Visit Plan review HEP stepper/ bike balance board leg press balance activities with EO/ EC / head turns heel toe, marching in place
--- NOTE | 2019-12-26 17:00 | PT.OPPOC ---
Physical, Occupational & Speech Therapy At [facility] Current Diagnoses Other specified personal risk factors, not elsewhere classified (12/26/19) Visit Care Team Role Provider Type Verenice Manning MD Attending Provider Physician Primary Care Provider Referring Provider Specialty: Family Practice Address: [address] [place] [address] [place], [address] Email: [email or web address] Plan Of Care PT-OP-T Assessment and Plan Start: 12/12/19 12:32 Freq: Status: Active Protocol: Document 12/26/19 16:35 HH (Rec: 12/26/19 16:59 HH [email or web address]) Physical Therapy Assessment Other Concerns Barriers to Rehabilitation per EMR, Patient has a long- time history of depression and anxiety. She had an episode of severe depression with psychotic features and was psychiatrically hospitalized in 2012. She had a 2nd acute episode in July 2018 which was managed on an outpatient basis. Patient has lived in [place] her entire life. She has good social support ( although significantly reduced by COVID-19 recommendations). She is especially close to 1 brother who [place] [facility]. CHIEF COMPLAINT: Acute episode of depression with psychosis in July 2018. Worsening depression and anxiety associated with increased social isolation due to COVID- 19 restrictions. Her akathisia/TD in feet fluctuates (more prominent when feeling stressed), tearfulness, social isolation. Goals HEP Impairment pt does not have any HEP Short Term Goal (STG) Pt will complete HEP safely and independently on a daily basis. STG Duration 8 weeks DGI Impairment pt scores 8/24 on DGI Short Term Goal (STG) pt will score 10 or above on DGI STG Duration 4 weeks [facility]ci Goal (LTG) pt will score 15 or above on DGI to improve her gait stability to reduce fall risks . LTG Duration 8 weeks ROSARIO Impairment pt scores 39/56 for ROSARIO Short Term Goal (STG) Pt will score 44 or above on ROSARIO STG Duration 4 weeks Patient Care Provider Goal (LTG) Pt will score 46 or above on ROSARIO to improve her overall mobiltiy and balance LTG Duration 8 weeks Assessment Summary Assessment Dr. Webb notified this PT to proceed PT with patient since her akathisia is closely followed by her and SARA Farmer. Cont assessment from last visit today., pt scores 36/56 for ROSARIO and 8/24 for DGI which are significantly lower than peers . Pt tends to LOB with head turns, SLS type of balancing activities and needed CGa/ min A. Pt also has poor endurance and required frequent rest breaks. Although pt has various external factors that affect her baalnce such as psychiatric medication and psychiatric illness, pt will still benefit from skilled therapy to improve her overall balance and LE strength to reduce her fall risk. However, d/t high copay for her insurance, recommended pt to be compliant on her HEP and POC = once every 2 weeks for 2 months. Physical Therapy Plan Frequency and Duration Frequency of Treatment Every Other Week Duration of Treatment 8 weeks Plan of Care Start Date 12/26/19 Plan of Care End Date 02/24/20 Next Visit Focus/Plan Next Note Type Treatment Note Next Visit Plan review HEP stepper/ bike balance board leg press balance activities with EO/ EC / head turns heel toe, marching in place Plan of Care Dates Plan of Care Start Date 12/26/19 Plan of Care End Date 02/24/20 Electronically Signed by: Faby Pineda PT 12/26/19 1700 Please Sign and Return: I have reviewed this Plan of Care and certify that the skilled therapy services above are required to meet the patient?s needs. Physician Signature Date Printed Name and Credentials Clinical Instructor Signature Printed Name and Credentials
--- NOTE | 2020-01-03 16:06 | PT.OTN ---
Current Diagnoses Other specified personal risk factors, not elsewhere classified (01/03/20) Physical Therapy Treatment Note PT-OP-A Visit Information Start: 12/12/19 12:32 Freq: Status: Active Protocol: Document 01/03/20 15:17 HH (Rec: 01/03/20 16:06 [id number]) Out-Patient Physical Therapy Visit Information Visit Information Visit Type Treatment Note Visit Start Time 15:16 Visit Stop Time 15:59 Total Visit Minutes 43 Visit Number 3 Number of TURBINE ENGINE ASSEMBLER Visits 0 PT-OP-B Current Condition Start: 12/12/19 12:32 Freq: Status: Active Protocol: Document 12/12/19 12:33 HH (Rec: 12/12/19 12:57 [email or web address]) Current Condition History of Current Condition Onset Date years ago Current Complaints Decline in balance, risk of falling, difficulty in walking History of Current Condition Pt is a 64yo female here for decline in balance, risk of falling and difficulty in walking. Pt presents with flat affect and somewhat poor attention. Pt noticed her balance has been getting worse since a few years ago and she had 6-7 falls within the past year, especially 2 times withn the past 2 weeks. She described her legs feel like out of control and wobbly who shows involuntary movement in seated/ laying position. Pt stated she can control them sometimes depends on the day. She also c/o dizziness/ room spinning sensation sometimes especially bed mobility. Pt saw Dr. Manning but she said she did not address her presentation of uncontrolled leg movement to her. Future Testing and Treatments Planned Pt will see Dr. Manning again on 12/13 for f/u. Treatment Goals Patient/Caregiver Goals To improve her balance to reduce her fall risks Personal Factors Other Personal Factors That May Effect psychological disorder Therapy/Recovery depression dizziness PT-OP-C Subjective Start: 12/12/19 12:32 Freq: Status: Active Protocol: Document 12/12/19 12:33 HH (Rec: 12/12/19 12:57 [email or web address]) OP-PT Subjective Patient Comments Patient Comments 'My legs are hard to control sometimes and i dont know why. Patient Questionnaires ABC- Activity Specific Balance Confidence Scale ABC Score 71.25 ABC Functional Impairment 20 to <40% Impaired (Score 61- 80) Dizziness Handicap Inventory DHI Score 64 DHI Functional Impairment 60 to 79% Impaired (Score 60- 79) PT-OP-D Balance Start: 12/12/19 12:32 Freq: Status: Active Protocol: Document 12/26/19 16:35 HH (Rec: 12/26/19 16:59 HH [email or web address]) Balance Tests Rosario Balance Test Rosario Balance Test Score 39 Rosario Impairment Rating 20 to 39% Impaired (Score 34- 44) Rosario Balance Assessment Evaluation Sitting to Standing Ability Independent w/out Hands Unsupported Stance Supervision- 2 minutes Sitting Unsupported, Feet on Floor Safely- 2 minutes Standing to Sitting Ability Assist, Control w/Hands Transfer Ability Safely, Minimal Hand Use Unsupported Stance- Eyes Closed Supervision, 10 seconds Unsupported Stance- Eyes Open Independent, 1 minute Reaching Forward Standing Safely, 5 inches Pick- Up Object From Floor Supervision Look Behind Shoulder - Standing Shifts Weight Well Turning 360 Degrees Turns slowly, but safely Unsupported Stance, Alternating Feet on 2 Steps w/Minimum Assist Stair Unsupported Tandem Stance Balance Lost- Step/Stand Unilateral Leg Stance Lifts Leg/Unable to Hold Total Score Rosario Total Score (out of 56 points) 39 Rosario Impairment Rating 20 to 39% Impaired (Score 34- 44) PT-OP-E Functional Tests Start: 12/12/19 12:32 Freq: Status: Active Protocol: Document 12/26/19 16:35 HH (Rec: 12/26/19 16:59 [email or web address]) Functional Tests Dynamic Gait Index (DGI) Score 8 DGI Impairment Rating 60 to <80% Impaired (Score 5-9 ) PT-OP-G Mobility & Gait Start: 12/12/19 12:32 Freq: Status: Active Protocol: Document 12/12/19 12:33 HH (Rec: 12/12/19 12:57 [email or web address]) OP Gait Assessment Gait Deviations General Gait Pattern Antalgic Factors Limiting Gait Function Factors Limiting Gait Function Poor Balance Comments Gait Comments pt presents an ataxic gait with uneven step length and width length. Pt overall amb slowly with difficulty amb with a straigth line. Occasional lateral weight shift noted. PT-OP-H Neuro Start: 12/12/19 12:32 Freq: Status: Active Protocol: Document 12/12/19 12:33 HH (Rec: 12/12/19 12:57 [email or web address]) Coordination Evaluation Upper Extremity Tests Right Finger to Nose Test Minimal Impairment Finger to Therapist's Finger Test Minimal Impairment Finger to Finger Test Minimal Impairment Finger Opposition Test Minimal Impairment Pronation/Supination Test Minimal Impairment Left Finger to Nose Test Minimal Impairment Finger to Therapist's Finger Test Minimal Impairment Finger to Finger Test Minimal Impairment Finger Opposition Test Minimal Impairment Pronation/Supination Test Minimal Impairment Lower Extremity Tests Right Alternate Heel to Knee; Heel to Toe Test Moderate Impairment Heel on Lee Test Moderate Impairment Left Alternate Heel to Knee; Heel to Toe Test Moderate Impairment Heel on Lee Test Moderate Impairment Muscle Tone Tone Assessment Right Lower Extremity Manifestations of Tone Fluctuation,Athetoid Movement Muscle Tone Comments pt presents fluctuated tone at lower legs , along with consistent chorea for B LE in seated and supine positions. pt has difficulty performing lee to knee and ankle circles tests. Right Upper Extremity Flexor Tone Description Normal Extensor Tone Description Normal Left Upper Extremity Flexor Tone Description Normal Extensor Tone Description Normal PT-OP-K Range of Motion Start: 12/12/19 12:32 Freq: Status: Active Protocol: Document 12/12/19 12:33 HH (Rec: 12/12/19 12:57 [email or web address]) Hip Goniometric Range of Motion Hip Right Active Hip ROM WFL Yes Left Active Hip ROM WFL Yes Knee Goniometric Range of Motion Knee Right Knee ROM WFL Yes Left Knee ROM WFL Yes PT-OP-M Strength Start: 12/12/19 12:32 Freq: Status: Active Protocol: Document 12/12/19 12:33 HH (Rec: 12/12/19 12:57 [email or web address]) Hip Strength Hip Manual Muscle Testing Right Reason Not Measured Muscle Tone Comments Has difficulty isolating single joint movement Left Reason Not Measured Muscle Tone Comments Has difficulty isolating single joint movement PT-OP-O Vestibular Start: 12/12/19 12:32 Freq: Status: Active Protocol: Document 12/12/19 12:33 HH (Rec: 12/12/19 14:57 [email or web address]) Vestibular Assessment Visual Testing Smooth Pursuits Horizontal intact Smooth Pursuits Vertical intact Saccades Horizontal intact Saccades Vertical intact Vestibulo-Ocular Reflex (VOR1) Positive PT-OP-Q Treatments Start: 12/12/19 12:32 Freq: Status: Active Protocol: Document 01/03/20 15:17 HH (Rec: 01/03/20 16:06 [id number]) Cardio Equipment Recumbent Stepper (Sci-Fit) Duration (Minutes) 6 Resistance 1 Gym Equipment Shuttle Balance blue Details pt was able to balance without UE support Reps/Duration 1 mins Comments c/o fatigue and requested to rest . red Details pt needed frequent UE support on grab bars Reps/Duration 6 mins Comments pt has excessive uncontrolled ankle movements. Need closed CGA from PT Therapeutic Exercises Standing Exercises heel toe Standing Exercise Name 1 UE support on grab bar Reps/Minutes 4 mins Comments her balance improved with semi tandem side stepping Standing Exercise Name UEs on grab bar Side bilateral Comments for HEP, pt LOB if without support Neuro Re-Education Treatment Balance Activities uneven surface Surface blue mat Reps/Duration 10 secs x 2 Comments with EC. Excessive sway noted. Pt chepe well without LOB side stepping Surface ground level Equipment CGA Reps/Duration 15 x 5 hurdles Details step to pattern Surface ground level Equipment hurdles Reps/Duration 8 mins Comments pt need mutiple cues to slow her down and cues for feet clearance. pt needed CGA and bilateral UE support. PT-OP-T Assessment and Plan Start: 12/12/19 12:32 Freq: Status: Active Protocol: Document 01/03/20 15:17 (Rec: 01/03/20 16:06 [id number]) Physical Therapy Assessment Goals HEP Impairment pt does not have any HEP Short Term Goal (STG) Pt will complete HEP safely and independently on a daily basis. STG Duration 8 weeks DGI Impairment pt scores 8/24 on DGI Short Term Goal (STG) pt will score 10 or above on DGI STG Duration 4 weeks Senior Care Goal (LTG) pt will score 15 or above on DGI to improve her gait stability to reduce fall risks . LTG Duration 8 weeks ROSARIO Impairment pt scores 39/56 for ROSARIO Short Term Goal (STG) Pt will score 44 or above on ROSARIO STG Duration 4 weeks Senior Care Goal (LTG) Pt will score 46 or above on ROSARIO to improve her overall mobiltiy and balance LTG Duration 8 weeks Assessment Summary Assessment Pt chepe session well with a mix of static and dynamic balance training. Pt did get fatigue easily and noticed pt has difficulty with controlling her excessive & uncoordinated ankle movements. Educated pt to focus on quality of the movements instead of speed for safety purpose. Physical Therapy Plan Next Visit Focus/Plan Next Note Type Treatment Note Next Visit Plan review HEP stepper/ bike balance board leg press balance activities with EO/ EC / head turns heel toe, marching in place
--- NOTE | 2020-02-13 11:03 | PT.OPDS ---
Current Diagnoses Other specified personal risk factors, not elsewhere classified (01/03/20) Visit Care Team Role Provider Type Verenice Manning MD Attending Provider Physician Primary Care Provider Referring Provider Specialty: Family [facility] Address: [address] [place] [address], [facility] Email: [email or web address] Visit Number Visit Number 07/23 Discharge Summary PT-OP-T Assessment and Plan Start: 12/12/19 12:32 Freq: Status: Active Protocol: Document 02/13/20 11:01 (Rec: 02/13/20 11:03 [email or web address]) Physical Therapy Plan Discharge Physical Therapy Discharge Reasons Patient Request Discharge Comments pt called in and requested to be d/c from therapy d/t copay and transportation issues.
== END 2020-04-27 14:25 ==
LOC: PHYS 15:15
PROVIDERS: PCP Student in an Organized Health Care Education/Training Program; Referring Provider Student in an Organized Health Care Education/Training Program; Visit Provider Student in an Organized Health Care Education/Training Program
DX: Z91.89 Other specified personal risk factors, not elsewhere classified (principal)
CPT/HCPCS: 97110; 97112; 97163

== ENCOUNTER → 2021-03-16 09:40 | Outpatient (CLI) | payer OTHER, SELFPAY ==
--- NOTE | 2021-03-16 09:41 | DI.MG.S_ITS ---
BILATERAL DIGITAL SCREENING MAMMOGRAM 3D/2D WITH CAD: 03/16/2021 CLINICAL: Routine screening. Comparison is made to exams dated: 12/20/2019 mammogram, 09/07/2018 mammogram, and 08/07/2017 mammogram - [facility]. The tissue of both breasts is extremely dense, which lowers the sensitivity of mammography. Current study was also evaluated with a Computer Aided Detection (CAD) system. There are benign calcifications in both breasts. No significant masses, calcifications, or other findings are seen in either breast. There has been no significant interval change. IMPRESSION: BENIGN There is no mammographic evidence of malignancy. A 1 year screening mammogram is recommended. This exam was interpreted at Station ID: [id number]. NOTE: For mammograms, a report in lay terms will be sent to the patient. Approximately 15% of breast malignancies will not be visualized mammographically. In the management of a palpable breast mass, a negative mammogram must not discourage biopsy of a clinically suspicious lesion. Electronically Signed By: Antonio rose/matt:03/18/2021 08:59:58 letter sent: Normal Exam ACR BI-RADS Category 2: Benign Finding(s) 3342F
== END ==
PROVIDERS: PCP Student in an Organized Health Care Education/Training Program; Referring Provider Student in an Organized Health Care Education/Training Program; Visit Provider Student in an Organized Health Care Education/Training Program
DX: Z12.31 Encounter for screening mammogram for malignant neoplasm of breast (principal)
CPT/HCPCS: 77063; 77067

== ENCOUNTER → 2022-03-25 16:02 | Outpatient (CLI) | payer OTHER, SELFPAY ==
--- NOTE | 2022-03-25 | DI.MG.S_ITS ---
BILATERAL DIGITAL SCREENING MAMMOGRAM 3D/2D WITH CAD: 03/25/2022 CLINICAL: Routine screening. Comparison is made to exams dated: 03/16/2021 mammogram, 12/20/2019 mammogram, and 09/07/2018 mammogram - [facility]. Both breasts are heterogeneously dense, which may obscure small masses (category c / 51-75% glandular tissue). Current study was also evaluated with a Computer Aided Detection (CAD) system. There are benign calcifications in both breasts. No significant masses, calcifications, or other findings are seen in either breast. There has been no significant interval change. IMPRESSION: BENIGN There is no mammographic evidence of malignancy. A 1 year screening mammogram is recommended. Based on the Tyrer Cuzick model (a risk assessment model) the patient's lifetime risk is 8.0% and her 10 year risk is 4.5%. According to the ACR, ACS, and NCCN guidelines, an annual breast MRI exam along with mammogram is recommended if the patient's lifetime risk is 20% or greater. This exam was interpreted at Station ID: [id number]. NOTE: For mammograms, a report in lay terms will be sent to the patient. Approximately 15% of breast malignancies will not be visualized mammographically. In the management of a palpable breast mass, a negative mammogram must not discourage biopsy of a clinically suspicious lesion. Electronically Signed By: Kelly padilla/matt:03/26/2022 08:53:01 letter sent: Normal Exam ACR BI-RADS Category 2: Benign Finding(s) 3342F
== END ==
PROVIDERS: PCP Student in an Organized Health Care Education/Training Program; Referring Provider Internal Medicine; Visit Provider Internal Medicine
DX: Z12.31 Encounter for screening mammogram for malignant neoplasm of breast (principal)
CPT/HCPCS: 77063; 77067

== ENCOUNTER → 2022-06-02 11:27 | Outpatient (CLI) | payer OTHER, SELFPAY | PROVIDERS: PCP Registered Nurse; Referring Provider Registered Nurse; Visit Provider Registered Nurse | DX: Z78.0 Asymptomatic menopausal state (principal); Z13.820 Encounter for screening for osteoporosis; M85.851 Other specified disorders of bone density and structure, right thigh; Z90.710 Acquired absence of both cervix and uterus | CPT/HCPCS: 77080 ==

== ENCOUNTER → 2023-01-28 15:58 | Outpatient (CLI) | payer OTHER, SELFPAY ==
[2023-01-28 18:06] LABS: Alanine Aminotransferase 23 IU/L (<35); Albumin 3.8 g/dL (3.5-5.0); Albumin Globulin Ratio 1.3 (1.0-2.8); Alkaline Phosphatase 79 U/L (38-126); Aspartate Aminotransferase 25 IU/L (14-36); BUN Creatinine Ratio 26.5 (6-22); Bilirubin Total 0.5 mg/dL (0.2-1.3); Blood Urea Nitrogen 18 mg/dL (7-17); Calcium 9.5 mg/dL (8.4-10.2); Carbon Dioxide 26 mmol/L (22-32); Chloride 105 mmol/L (98-107); Cholesterol 151 mg/dL (140-199); Estimated Glomerular Filt Rate > 60 mL/min (>60); Glucose 111 mg/dL (80-110); HDL Cholesterol 54 mg/dL (40-60); HEMOLYSIS < 15 (0-50); LDL Cholesterol Calculated 67 mg/dL (<100); Potassium 3.5 mmol/L (3.4-5.1); Sodium 139 mmol/L (137-145); Total Protein 6.8 g/dL (6.3-8.2); Triglycerides 148 mg/dL (35-150)
== END ==
PROVIDERS: PCP Registered Nurse; Referring Provider Psychiatry & Neurology Psychiatry; Visit Provider Psychiatry & Neurology Psychiatry
DX: F25.1 Schizoaffective disorder, depressive type (principal); G24.01 Drug induced subacute dyskinesia; G25.71 Drug induced akathisia; F43.12 Post-traumatic stress disorder, chronic; Z79.899 Other long term (current) drug therapy
CPT/HCPCS: 36415; 80053; 80061; 99215

== ENCOUNTER → 2023-04-16 11:20 | Outpatient (CLI) | payer OTHER, SELFPAY ==
--- NOTE | 2023-04-16 | DI.MG.S_ITS ---
BILATERAL DIGITAL SCREENING MAMMOGRAM 3D/2D WITH CAD: 04/16/2023 CLINICAL: Routine screening. Comparison is made to exams dated: 03/25/2022 mammogram, 03/16/2021 mammogram, and 12/20/2019 mammogram - [facility]. Both breasts are heterogeneously dense, which may obscure small masses (category c / 51-75% glandular tissue). Current study was also evaluated with a Computer Aided Detection (CAD) system. No significant masses, calcifications, or other findings are seen in either breast. IMPRESSION: NEGATIVE There is no mammographic evidence of malignancy. A 1 year screening mammogram is recommended. Based on the Tyrer Cuzick model (a risk assessment model) the patient's lifetime risk is 7.6% and her 10 year risk is 4.5%. According to the ACR, ACS, and NCCN guidelines, an annual breast MRI exam along with mammogram is recommended if the patient's lifetime risk is 20% or greater. This exam was interpreted at Station ID: [id number]. NOTE: For mammograms, a report in lay terms will be sent to the patient. Approximately 15% of breast malignancies will not be visualized mammographically. In the management of a palpable breast mass, a negative mammogram must not discourage biopsy of a clinically suspicious lesion. Electronically Signed By: Marlene Arango M.D., PH.D eb/penrad:04/16/2023 14:43:31 letter sent: Normal Exam ACR BI-RADS Category 1: Negative 3341F
== END ==
PROVIDERS: PCP Registered Nurse; Referring Provider Internal Medicine; Visit Provider Internal Medicine
DX: Z12.31 Encounter for screening mammogram for malignant neoplasm of breast (principal)
CPT/HCPCS: 77063; 77067

== ENCOUNTER 2023-12-24 11:54 | Day surgery (SDC) | payer OTHER, SELFPAY ==
--- NOTE | 2023-12-24 | PATH_ITS ---
[facility] Accession Number: [id number] No. of containers..01 Tissue . 01 Material submitted: . rectum - RECTAL POLYPS . 01 Diagnosis: RECTAL POLYPS: Hyperplastic polyps. [facility] 12/29/2023 1504 Local . 01 Electronically signed: . Antonio Skaggs MD, Pathologist NPI- [id number] . 01 Gross description: . Received in formalin, labeled with two patient identifiers and rectal polyps, and consists of multiple vilchis-white, friable and fragmented polypoid tissue fragments aggregating to 1.0 x 1.0 x 0.1 cm. The specimens are entirely submitted in cassette A1. ([id number]) /FRR 12/29/2023 1504 Local . 01 Pathologist provided ICD-10: K63.5 . 01 CPT . 165713 Specimen Comment: A courtesy copy of this report has been sent to [phone] Performed at: [address] [address], [place], [place] [id number] MD Antonio Skaggs MD Phone: [phone]
[2023-12-24] MEDS: LACTATED RINGERS 1,000 ML 42 ML IV (12:25)
[2023-12-24 12:26] VITALS: BMI 44.2
--- NOTE | 2023-12-24 13:17 | P.HP_ITS ---
History of Present Illness History of Present Illness Date Patient Seen: 12/24/23 Time Patient Seen: 13:17 Chief complaint: Screening Colonoscopy Narrative: Nadine is a 68 year old woman here for a colonoscopy. Her last one was over 10 years ago. No family history of colon cancer. [facility] Medical History (Updated 12/24/23 @ 13:18 by Mazin Portillo MD) Obstructive sleep apnea syndrome GERD (gastroesophageal reflux disease) Migraines Hyperlipidemia Hypertension Major depressive disorder, recurrent episode, severe, with psychosis Surgical History History of elbow surgery History of partial knee replacement History of carpal tunnel release Status post surgery (07/24/09) Social History household members: none Smoking Status: Never smoker alcohol intake: never Meds Home Medications and Allergies Home Medications Medication Instructions Recorded Confirmed Type alendronate 70 mg tablet 70 mg PO QWEEK 06/20/21 12/24/23 History atorvastatin 10 mg tablet 10 mg PO QPM 06/20/21 12/24/23 History cholecalciferol (vitamin D3) 25 100 mcg PO DAILY 06/20/21 10/29/23 History mcg (1,000 unit) capsule hydrochlorothiazide 25 mg tablet 25 mg PO DAILY 06/20/21 10/29/23 History losartan 100 mg tablet 100 mg PO DAILY 06/20/21 10/29/23 History pantoprazole 40 mg tablet,delayed 40 mg PO DAILY 06/20/21 10/29/23 History release trazodone 100 mg tablet 100 mg PO BEDTIME insomnia #90 tabs 04/30/23 12/24/23 Rx fluoxetine 40 mg capsule 80 mg (2 x 40 mg) PO QDAY 90 days 10/15/23 12/24/23 Rx #180 caps olanzapine 20 mg tablet 20 mg PO BEDTIME #90 tabs 10/15/23 10/29/23 Rx olanzapine 5 mg tablet 5 mg PO QAM 90 days #90 tabs 10/16/23 10/29/23 Rx lorazepam 1 mg tablet 1 mg PO TID 90 days #270 tabs 11/05/23 Rx prazosin 2 mg capsule 6 mg (3 x 2 mg) PO HS #90 caps 11/05/23 Rx sodium,potassium,mag sulfates 17.5 See Rx Instructions PO .COMPLEX 11/19/23 Rx gram-3.13 gram-1.6 gram oral soln #354 mL (Suprep Bowel Prep Kit) pramipexole 0.25 mg tablet 0.25 mg PO TID #90 tabs 12/09/23 Rx Allergies Allergy/AdvReac Type Severity Reaction Status Date / Time Penicillins Allergy Severe Anaphylaxis Verified 12/24/23 12:14 Sulfa (Sulfonamide Allergy Severe throat Verified 12/24/23 12:14 Antibiotics) swelling bee venom protein (honey bee) Allergy Unknown Verified 12/24/23 12:14 etodolac Allergy Unknown Verified 12/24/23 12:14 gatifloxacin Allergy Unknown Verified 12/24/23 12:14 hydrochlorothiazide Allergy Unknown Verified 12/24/23 12:14 hydrocodone Allergy Unknown Verified 12/24/23 12:14 latex Allergy Unknown Verified 12/24/23 12:14 levofloxacin Allergy Unknown Verified 12/24/23 12:14 mirtazapine Allergy Unknown Verified 12/24/23 12:14 mold Allergy Unknown Verified 12/24/23 12:14 triamterene Allergy Unknown Verified 12/24/23 12:14 trovafloxacin Allergy throat Verified 12/24/23 12:14 swells ZOMAX Allergy Mild STOMACH Uncoded 12/24/23 12:14 AND HEAD PAIN MOLDS AND SMUTS Allergy Unknown Uncoded 12/24/23 12:14 Exam Const General: No acute distress Resp Effort & Inspection: normal respiratory effort Assessment & Plan Assessment and plan (1) Colon cancer screening: Status: Acute Plan We reviewed the risks and benefits of colonoscopy for colon cancer screening and she would like to proceed. Time-Based Coding :: [TOTAL MINUTES] spent with patient and on the chart (including review of chart, obtaining history, exam, reviewing outside data, placing orders, documenting exam and treatment plan, and counseling patient) on [DATE].
--- NOTE | 2023-12-24 13:50 | PM.OP.COLON ---
Operative Date/Time/Diagnoses Date of procedure: 12/24/23 Time of procedure: 13:50 Pre-op diagnosis: Colon cancer screening Post-op diagnosis: same Procedure & Clinicians Study performed: Colonoscopy Same procedure as scheduled: Yes Surgeon: Mazin Portillo Procedure Notes Procedure in detail: Surgeon: Mazin Portillo MD Anesthesia: Jennifer Ferreira MD Procedure: The patient was brought to the endoscopy suite, placed in left lateral decubitus position. The patient was connected to monitoring devices. A time-out was performed. Sedation was administered. Once the patient was adequately sedated, a digital rectal exam was performed and was normal. The scope was then inserted and advanced to the cecum where the appendiceal orifice was identified and photographed. The scope was then slowly withdrawn over greater than 6 minutes. The mucosa was thoroughly inspected. There were 3 subcentimeter polyps in the rectum between 6 cm and 12 cm from the anal verge. Each was removed with a cold snare and sent together. The scope was retroflexed in the rectum. No other abnormalities were noted. The scope was straightened and removed. The patient was awakened and brought to recovery. Scope withdrawal time: 15 minutes Sedation time: 18 minutes EBL: 5 mL Findings: 3 subcentimeter polyps in the rectum Post-procedure Disposition: PACU
[2023-12-24 13:51] VITALS: BP 127/76; PULSE 77; RESP 19; TEMP 36.9; O2SAT 95
[2023-12-24 13:58] VITALS: BP 142/82; PULSE 81; RESP 20; TEMP 36.9; O2SAT 95
[2023-12-24 14:06] VITALS: BP 157/77; PULSE 87; RESP 20; TEMP 36.9; O2SAT 96
== END 2023-12-24 14:12 | disposition home or self-care (01) ==
PROVIDERS: PCP Registered Nurse; Referring Provider Surgery; Visit Provider Surgery
PROC: 0DJD8ZZ Inspection of Lower Intestinal Tract, Via Natural or Artificial Opening Endoscopic (ICD-10-PCS; CPT 45378; principal; 2023-12-24 13:00)
DX: Z12.11 Encounter for screening for malignant neoplasm of colon (principal); K62.1 Rectal polyp
CPT/HCPCS: 45385; J2704

== ENCOUNTER → 2023-12-25 10:40 | Outpatient (CLI) | payer OTHER, SELFPAY ==
--- NOTE | 2023-12-25 10:43 | DI.RAD.S_ITS ---
PROCEDURE: XR KNEE RT 3V INDICATIONS: KNEE PAIN TECHNIQUE: 3 views of the knee were acquired. COMPARISON: None. FINDINGS: Bones: No fractures or dislocations. No suspicious bony lesions. There are 3 ossified bodies posterior to the knee. Mild osteoarthritis of the lateral compartment of the knee. 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 Arthroplasty of the medial compartment of the knee. Soft tissues: Moderate sized joint effusion. No suspicious soft tissue calcifications. IMPRESSION: 1. No acute fracture or dislocation. 2. Arthroplasty of the medial compartment of the knee. 3. There are 3 ossified bodies posterior to the knee. 4. 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 5. Moderate-sized joint effusion. Dictated by: Niles Oliva M.D. on 12/25/2023 at 14:56 Approved by: Niles Oliva M.D. on 12/25/2023 at 15:05
== END ==
PROVIDERS: PCP Registered Nurse; Referring Provider Registered Nurse; Visit Provider Registered Nurse
DX: M17.11 Unilateral primary osteoarthritis, right knee (principal); M25.561 Pain in right knee; M23.41 Loose body in knee, right knee; M25.461 Effusion, right knee; Z96.651 Presence of right artificial knee joint
CPT/HCPCS: 73562

== ENCOUNTER → 2024-04-19 14:13 | Outpatient (CLI) | payer OTHER, SELFPAY ==
--- NOTE | 2024-04-19 14:13 | DI.MG.S_ITS ---
BILATERAL DIGITAL SCREENING MAMMOGRAM 3D/2D WITH CAD: 04/19/2024 CLINICAL: Routine screening. Comparison is made to exams dated: 04/16/2023 mammogram, 03/25/2022 mammogram, and 03/16/2021 mammogram - [facility]. The breasts are heterogeneously dense, which may obscure small masses (category c / 51-75% glandular tissue). Current study was also evaluated with a Computer Aided Detection (CAD) system. No significant masses, calcifications, or other findings are seen in either breast. There has been no significant interval change. IMPRESSION: NEGATIVE There is no mammographic evidence of malignancy. A 1 year screening mammogram is recommended. Based on the Tyrer Cuzick model (a risk assessment model) the patient's lifetime risk is 7.2% and her 10 year risk is 4.6%. According to the ACR, ACS, and NCCN guidelines, an annual breast MRI exam along with mammogram is recommended if the patient's lifetime risk is 20% or greater. This exam was interpreted at Station ID: [id number]. NOTE: For mammograms, a report in lay terms will be sent to the patient. Approximately 15% of breast malignancies will not be visualized mammographically. In the management of a palpable breast mass, a negative mammogram must not discourage biopsy of a clinically suspicious lesion. Electronically Signed By: Dennis nails/matt:04/19/2024 16:39:36 letter sent: Normal Exam ACR BI-RADS Category 1: Negative
== END ==
PROVIDERS: PCP Registered Nurse; Referring Provider Registered Nurse; Visit Provider Registered Nurse
DX: Z12.31 Encounter for screening mammogram for malignant neoplasm of breast (principal); R92.333 Mammographic heterogeneous density, bilateral breasts; F25.1 Schizoaffective disorder, depressive type; G24.01 Drug induced subacute dyskinesia; G25.71 Drug induced akathisia; F43.12 Post-traumatic stress disorder, chronic
CPT/HCPCS: 77063; 77067; 99214

== ENCOUNTER → 2024-06-17 13:38 | Outpatient (CLI) | payer OTHER, SELFPAY ==
[2024-06-17 14:25] LABS: Add Manual Diff / Slide Review NO; Basophils Absolute Auto 100 /uL (0-100); Basophils Percent Auto 0.6 % (0-2); Eosinophils Absolute Auto 100 /uL (0-450); Eosinophils Percent Auto 0.8 % (2-4); Hematocrit 40.2 % (36-46); Hemoglobin 13.5 g/dL (12.0-16.0); Lymphocytes Absolute Auto 1500 /uL (1100-4500); Lymphocytes Percent Auto 17.8 % (25-40); Mean Corpuscular HGB Conc 33.6 % (30-36); Mean Corpuscular Hemoglobin 31.5 PG (26-34); Monocytes Absolute Auto 600 /uL (0-900); Monocytes Percent Auto 6.7 % (3-14); Neutrophils Absolute Auto 6300 /uL (1500-7000); Neutrophils Percent Auto 74.1 % (50-75); Platelet Count 287 X10^3/uL (150-400); Red Blood Cell Count 4.28 X10^6/uL (4.0-5.2); Red Cell Distribution Width 13.4 % (11.6-14.8); White Blood Cell Count 8.5 X10^3/uL (4.5-11.0)
[2024-06-17 14:44] LABS: Alanine Aminotransferase 24 IU/L (<35); Albumin 4.3 g/dL (3.5-5.0); Albumin Globulin Ratio 1.7 (1.0-2.8); Alkaline Phosphatase 111 U/L (38-126); Aspartate Aminotransferase 29 IU/L (14-36); BUN Creatinine Ratio 27.5 (6-22); Bilirubin Total 0.5 mg/dL (0.2-1.3); Blood Urea Nitrogen 19 mg/dL (7-17); Carbon Dioxide 23 mmol/L (22-32); Chloride 106 mmol/L (98-107); Cholesterol 163 mg/dL (140-199); Estimated Glomerular Filt Rate > 60 mL/min (>60); Globulin 2.5 g/dL (1.7-4.1); Glucose 95 mg/dL (80-110); HDL Cholesterol 66 mg/dL (40-60); HEMOLYSIS < 15 (0-50); LDL Cholesterol Calculated 73 mg/dL (<100); Potassium 3.9 mmol/L (3.4-5.1); Sodium 138 mmol/L (137-145); Total Protein 6.8 g/dL (6.3-8.2); Triglycerides 119 mg/dL (35-150)
[2024-06-17 14:51] LABS: Hemoglobin A1C% w Est Avg Glu 5.2 % (4.0-6.0)
[2024-06-17 15:12] LABS: TSH w/ Reflex to FT4 0.82 uIU/mL (0.47-4.68)
== END ==
PROVIDERS: PCP Registered Nurse; Referring Provider Psychiatry & Neurology Psychiatry; Visit Provider Psychiatry & Neurology Psychiatry
DX: F25.1 Schizoaffective disorder, depressive type (principal); Z79.899 Other long term (current) drug therapy
CPT/HCPCS: 36415; 80053; 80061; 83036; 84443; 85025

== ENCOUNTER → 2024-08-10 12:05 | Outpatient (CLI) | payer OTHER, SELFPAY ==
--- NOTE | 2024-08-10 12:06 | DI.RAD.S_ITS ---
PROCEDURE: XR DEXA AXIAL SKELETON INDICATIONS: OSTEOPENIA MONITORING COMPARISON: [facility], , XR DEXA AXIAL SKELETON, 06/02/2022, 11:42. FINDINGS: Lumbar Spine: Bone mineral density 1.146 g/cm2, T score 0.9. Left Femoral Neck: Bone mineral density 0.736 g/cm2, T score -1.0. Left Hip: Bone mineral density 0.920 g/cm2, T score -0.2. Fracture Risk Calculation (when applicable): 10-year fracture risk of a major osteoporotic fracture 11 percent and of a hip fracture 2.7 percent. (T score greater or equal to -1.0 to: NORMAL) (T score from -1.1 to -2.4: OSTEOPENIA) (T score less than or equal to -2.5: OSTEOPOROSIS) IMPRESSION: Low normal bone mineral density for age. Follow-up guidelines as follows: Osteoporosis: Consider a repeat DEXA and Vertebral Fracture Assessment (VFA) exam in 2 years or sooner if medically necessary, to reassess this patient's status. Osteopenia: Consider a repeat DEXA in 2-3 years to reassess this patient's status, or if there is a new clinical indication. Normal: Consider a repeat DEXA in 5 years or sooner, or if there is a new clinical indication. All treatment decisions require clinical judgment and consideration of individual patient factors, including patient preferences, comorbidities, previous drug use, risk factors not captured in the FRAX model (e.g., frailty, falls, vitamin D deficiency, increased bone turnover, interval significant decline in bone density ) and possible under- or over-estimation of fracture risk by FRAX. In addition, the NOF Guide recommends that FDA-approved medical therapies be considered in postmenopausal women and men age >= 50 years with a: * Hip or vertebral (clinical or morphometric) fracture * T-score of <=-2.5 at the spine or hip * Ten-year fracture probability by FRAX of >= 3% for hip fracture or >=20% for major osteoporotic fracture. Dictated by: Braydon Irwin M.D. on 08/10/2024 at 13:46 Approved by: Braydon Irwin M.D. on 08/10/2024 at 13:48
== END ==
PROVIDERS: PCP Registered Nurse; Referring Provider Registered Nurse; Visit Provider Registered Nurse
DX: M85.852 Other specified disorders of bone density and structure, left thigh (principal)
CPT/HCPCS: 77080

== ENCOUNTER → 2025-01-26 09:42 | Outpatient (CLI) | payer OTHER, SELFPAY ==
--- NOTE | 2025-01-26 09:45 | DI.RAD.S_ITS ---
PROCEDURE: XR CHEST 2V INDICATIONS: FALL, LEFT RIB INJURY TECHNIQUE: 2 views of the chest were acquired. COMPARISON: None. FINDINGS: Surgical changes and devices: None. Lungs and pleura: Lungs are clear. No pleural effusions or pneumothorax. Mediastinum: Mediastinal contours are normal. Heart size is normal. Bones and chest wall: No suspicious bony abnormalities. No displaced rib fracture. Soft tissues appear unremarkable. IMPRESSION: No displaced rib fracture or pneumothorax. Dictated by: Nicholas Leary M.D. on 01/26/2025 at 10:41 Approved by: Nicholas Leary M.D. on 01/26/2025 at 10:42
== END ==
PROVIDERS: PCP Registered Nurse; Referring Provider Registered Nurse; Visit Provider Family Medicine
DX: S29.9XXA Unspecified injury of thorax, initial encounter (principal); W19.XXXA Unspecified fall, initial encounter
CPT/HCPCS: 71046

== ENCOUNTER → 2025-04-29 12:15 | Outpatient (CLI) | payer OTHER, SELFPAY ==
--- NOTE | 2025-04-29 12:15 | DI.MG.S_ITS ---
MM screening mammo BI: 04/29/2025. BI-RADS: 2 CLINICAL: 69-year old female for bilateral screening mammogram. Tyrer-Cuzick lifetime risk of 7.8%. No personal or first-degree family history of breast cancer. PRIOR EXAMS 04/19/2024, 04/16/2023, 03/25/2022, 03/16/2021, MAMMOGRAPHY TECHNIQUE: 2D and 3D (tomosynthesis) digital mammographic views obtained, with additional images as needed for full coverage. Current study was also evaluated with a Computer Aided Detection (CAD) system. DENSITY C. The breasts are heterogeneously dense, which may obscure small masses. MAMMOGRAPHY FINDINGS Right: Benign-appearing asymmetries and calcifications noted on the right. There are no suspicious masses, calcifications, or other findings in the breast. No significant change from comparison. Left: Biopsy marker present on the left. Benign-appearing asymmetries and calcifications noted on the left. There are no suspicious masses, calcifications, or other findings in the breast. No significant change from comparison. IMPRESSION: * No evidence of malignancy with benign findings. RECOMMENDATIONS Bilateral * Annual screening mammography. OVERALL ASSESSMENT CATEGORY BI-RADS-2: Benign. The [employer] recommends annual screening mammography beginning at age 40 for women with average risk of breast cancer. ELECTRONICALLY SIGNED: Braydon rIwin M.D. on 05/01/2025 at 07:02:29 AM PT Interpreting Station ID: [id number]
== END ==
LOC: MAMMO 12:15
PROVIDERS: PCP Registered Nurse; Referring Provider Registered Nurse; Visit Provider Registered Nurse
DX: Z12.31 Encounter for screening mammogram for malignant neoplasm of breast (principal); R92.333 Mammographic heterogeneous density, bilateral breasts
CPT/HCPCS: 77063; 77067